=== PATIENT | female | born 2000 | race Caucasian/White ===

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

== ENCOUNTER 2021-08-19 17:55 | Inpatient (IN) | payer BC ==
[2021-08-19] MEDS ORDERED: ePHEDrine 50 MG/ML SDV IVPUSH PRN (19:20)
[2021-08-19] MEDS ORDERED: fentaNYL 100 MCG/2 ML SDV EPIDUR PRN (19:20)
[2021-08-19] MEDS ORDERED: Ondansetron 4 MG/2 ML SDV IVPUSH PRN ×2 (19:20→19:57)
[2021-08-19] MEDS ORDERED: Bupivacaine/fentaNYL/NS 100 ML Bag EPIDUR SCH (19:30)
[2021-08-19] MEDS ORDERED: Sodium Chloride 0.9% 10 ML Syringe FLUSH PRN (19:57)
[2021-08-19] MEDS ORDERED: Nalbuphine 10 MG/1 ML Vial IVPUSH PRN (19:57)
[2021-08-19] MEDS ORDERED: Lactated Ringers 1,000 ML IV SCH (20:00)
[2021-08-19] MEDS ORDERED: Oxytocin/Lactated Ringers 10 UNIT/1,000 ML BAG IV SCH (20:00)
--- NOTE | 2021-08-19 20:01 | PCM.LDHP ---
L&D History of Present Illness - General Date of Service: 08/19/21 Admit Problem/Dx: Patient Status Order with Admit Dx/Problem 08/19/21 19:57 Patient Status [ADT] Routine Admission Diagnosis/Problem Admission Diagnosis/Problem Normal labor Source of Information: Patient History Limitations: Reports: No Limitations - History of Present Illness Introduction:: Patient is a 21 y/o at 39 5/7 wks who presents for concerns of labor . Has been allen on and off for about 24 hours. Worsened this PM. No LOF - Related Data Allergies/Adverse Reactions: Allergies Allergy/AdvReac Type Severity Reaction Status Date / Time amoxicillin [From Augmentin] Allergy Rash Verified 08/16/21 15:16 clavulanic acid Allergy Rash Verified 08/16/21 15:16 [From Augmentin] dextromethorphan Allergy Rash Verified 08/16/21 15:16 [From NyQuil] doxylamine [From NyQuil] Allergy Rash Verified 08/16/21 15:16 pseudoephedrine [From NyQuil] Allergy Rash Verified 08/16/21 15:16 Home Medications: Home Meds Acyclovir 400 mg PO TID 08/16/21 [History] Calcium Carbonate [Calcium] 600 mg PO DAILY 08/16/21 [History] [place]-3 Fatty Acids [Maxepa] 500 mg PO DAILY 08/16/21 [History] Pnv No.95/Ferrous Fum/Folic AC [ Tablet] 1 each PO DAILY 08/16/21 [History] Past Medical History - Past Health History Medical/Surgical History: Denies Medical/Surgical History IMPORT/[employer] History: Reports: : 1 Para: 0 LMP (Approximate): Social & Family History - Tobacco Use Tobacco Use Status *Q: Never Tobacco User - Caffeine Use Caffeine Use: Reports: Coffee, Tea - Alcohol Use Alcohol Use History: No - Recreational Drug Use Recreational Drug Use: No H&P Review of Systems - Review of Systems: Review Of Systems: See Below General: Reports: No Symptoms Pulmonary: Reports: No Symptoms Cardiovascular: Reports: No Symptoms Gastrointestinal: Reports: Abdominal Pain Genitourinary: Reports: No Symptoms Musculoskeletal: Reports: No Symptoms Psychiatric: Reports: No Symptoms Neurological: Reports: No Symptoms L&D Exam - Exam Exam: See Below - Vital Signs Weight: 66.27 kg - OB Specific Contraction Intensity: Mild to Moderate Movement: Active Heart Tones: Present Heart Tones per Min: 125 Heart Rate (FHR) Variability: Moderate (6-25 bpm) Presentation: Vertex - Queen Score Queen Score Cervix Position: Midposition Queen Score Consistency: Soft Queen Score Effacement: >80% Queen Score Dilation: 3-4 cm Queen Score Infant's Station: -1 ,0 Queen Score Total: 10 - Exam General: Alert, Oriented, Cooperative Lungs: Clear to Auscultation, Normal Respiratory Effort Cardiovascular: Regular Rate, Regular Rhythm GI/Abdominal Exam: Soft, Non-Tender Genitourinary: Normal external exam - Patient Data Result Diagrams: 08/19/21 20:17 - Problem List (1) 39 weeks gestation of SNOMED Code(s): 72193786 ICD Code: Z3A.39 - 39 WEEKS GESTATION OF Status: Acute Current Visit: Yes (2) Rubella non-immune status, antepartum SNOMED Code(s): 672346334 ICD Code: O99.891 - OTH DISEASES AND CONDITIONS COMPLICATING ; Z28.3 - UNDERIMMUNIZATION STATUS Status: Acute Current Visit: Yes Problem List Initiated/Reviewed/Updated: Yes Orders Last 24hrs: Active Orders 24 hr Category Date Time Status Patient Status [ADT] Routine ADT 08/19/21 19:57 Ordered Activity as Tolerated [RC] PFP Care 08/19/21 19:57 Ordered Communication Order [RC] ASDIRECTED Care 08/19/21 19:57 Ordered Heart Tones [RC] ASDIRECTED Care 08/19/21 19:58 Ordered Non Stress Test [RC] PER UNIT ROUTINE Care 08/19/21 19:57 Ordered Notify Provider [RC] ASDIRECTED Care 08/19/21 19:19 Active Notify Provider [RC] PFP Care 08/19/21 19:57 Ordered Notify Provider [RC] PRN Care 08/19/21 19:57 Ordered Oxygen Therapy [RC] ASDIRECTED Care 08/19/21 19:19 Active Peripheral IV Care [RC] . DIRECTED Care 08/19/21 19:58 Ordered Pulse Oximetry [RC] ASDIRECTED Care 08/19/21 19:19 Active Vital Signs [RC] PER UNIT ROUTINE Care 08/19/21 19:57 Ordered CBC W/O DIFF,HEMOGRAM [HEME] Routine Lab 08/19/21 19:57 Ordered CORONAVIRUS COVID-19 RAJEEV [MOLEC] Stat Lab 08/19/21 19:59 Ordered RAPID PLASMA REAGIN,RPR [CHEM] Routine Lab 08/19/21 19:57 Ordered TYPE AND SCREEN [BBK] Routine Lab 08/19/21 19:57 Ordered Bupivacaine/fentaNYL/NS [fentaNYL/Bupivacaine/NS 2 MCG- Med 08/19/21 19:30 Active 0.125% 100 ML] 100 ml EPIDUR ASDIRECTED Lactated Ringers [Ringers, Lactated] 1,000 ml Med 08/19/21 20:00 Ordered IV ASDIRECTED Nalbuphine [Nubain] Med 08/19/21 19:57 Ordered 10 mg IVPUSH Q2H PRN Ondansetron [Zofran] Med 08/19/21 19:20 Active 4 mg IVPUSH ONETIME PRN Ondansetron [Zofran] Med 08/19/21 19:57 Ordered 4 mg IVPUSH Q4H PRN Oxytocin/Lactated Ringers [Pitocin in LR 10 Units/1,000 Med 08/19/21 20:00 Ordered ML] 10 unit in 1,000 ml IV .CONTINUOUS Phenylephrine HCl In 0.9% NaCl [Phenylephrine 1 MG/10 Med 08/19/21 19:20 Pending ML-NS] 0.1 mg IVPUSH Q10M PRN Sodium Chloride 0.9% [Saline Flush] Med 08/19/21 19:57 Ordered 10 ml FLUSH ASDIRECTED PRN ePHEDrine [ePHEDrine sulfate] Med 08/19/21 19:20 Pending 5 mg IVPUSH ASDIRECTED PRN fentaNYL [Sublimaze] Med 08/19/21 19:20 Active 100 mcg EPIDUR Q3H PRN Electronic Heart Tones Ext w TOCO [WOMSER] Oth 08/19/21 19:57 Ordered Routine Electronic Heart Tones Internal [WOMSER] Per Unit Oth 08/19/21 19:57 Ordered Routine Peripheral IV Insertion Adult [OM.PC] Routine Oth 08/19/21 19:57 Ordered Resuscitation Status Routine Resus Stat 08/19/21 19:57 Ordered Medication Orders Ephedrine Sulfate (Ephedrine 50 Mg/Ml Sdv) 5 mg IVPUSH ASDIRECTED PRN PRN Reason: Hypotension Fentanyl (Fentanyl 100 Mcg/2 Ml Sdv) 100 mcg EPIDUR Q3H PRN PRN Reason: Pain Fentanyl/Bupivacaine HCl (Bupivacaine/Fentanyl/Ns 100 Ml Bag) 100 ml EPIDUR DIRECTED SHYANNE Miscellaneous Medication (Phenylephrine Hcl In 0.9% Nacl 1 Mg/10 Ml Syringe) 0.1 mg IVPUSH Q10M PRN PRN Reason: Hypotension Ondansetron HCl (Ondansetron 4 Mg/2 Ml Sdv) 4 mg IVPUSH ONETIME PRN PRN Reason: Nausea/Vomiting Assessment/Plan Comment:: * Labs done * GBS negative * AROM completed * Pain management per patient preference * Anticipate
[2021-08-19] MEDS ORDERED: Lidocaine 1% 50 ML MDV ONE (22:51)
--- NOTE | 2021-08-19 23:31 | PCM.DEL ---
L & D Note - General Info Date of Service: 08/19/21 - Delivery Note Labor: Spontaneous Delivery Outcome: Livebirth Delivery Method: Spontaneous Vaginal Delivery-Single Delivery Mode: Spontaneous Presentation: Left Occiput Anterior (MARK) Nuchal Cord: None Anesthesia Type: None Episiotomy Type: None Laceration: 1st Degree Placenta: Intact, Spontaneous Cord: 3 Vessels Estimated Blood Loss: 100 Resuscitation Needed: Yes : Bulb Syringe, Stimulated, Warmed, [place] Used Delivery Comments (Free Text/Narrative):: Patient found to be complete and began pushing. With maternal pushing effort head delivered from MRAK presentation. No nuchal cord present. With gentle downward traction shoulders and body delivered. Infant placed on maternal abdomen. Cord clamped and cut. Cord blood obtained. placenta allowed time to separate and expelled intact. Inspection of perineum showed a small 1st degree laceration which was hemostatic and so not repaired - General Info Date of Service: 08/19/21 - Patient Data Vitals - Most Recent: Last Vital Signs Temp 37.1 C 08/19/21 19:57 Pulse 71 08/19/21 19:57 Resp 14 08/19/21 19:57 BP 114/76 08/19/21 19:57 Pulse Ox 98 08/19/21 19:57 Weight - Most Recent: 66.224 kg - Problem List & Annotations (1) 39 weeks gestation of SNOMED Code(s): 33733699 Code(s): Z3A.39 - 39 WEEKS GESTATION OF Status: Acute Current Visit: Yes (2) Rubella non-immune status, antepartum SNOMED Code(s): 908456336 Code(s): O99.891 - OTH DISEASES AND CONDITIONS COMPLICATING ; Z28.3 - UNDERIMMUNIZATION STATUS Status: Acute Current Visit: Yes (3) Vaginal delivery SNOMED Code(s): 524738678 Code(s): O80 - ENCOUNTER FOR FULL-TERM UNCOMPLICATED DELIVERY Status: Acute Current Visit: Yes - Problem List Review Problem List Initiated/Reviewed/Updated: Yes - My Orders Last 24 Hours: My Active Orders 08/19/21 19:57 Patient Status [ADT] Routine Activity as Tolerated [RC] PFP Communication Order [RC] ASDIRECTED Non Stress Test [RC] PER UNIT ROUTINE Notify Provider [RC] PFP Notify Provider [RC] PRN Vital Signs [RC] PER UNIT ROUTINE Nalbuphine [Nubain] 10 mg IVPUSH Q2H PRN Ondansetron [Zofran] 4 mg IVPUSH Q4H PRN Sodium Chloride 0.9% [Saline Flush] 10 ml FLUSH ASDIRECTED PRN Electronic Heart Tones Ext w TOCO [WOMSER] Routine Electronic Heart Tones Internal [WOMSER] Per Unit Routine Peripheral IV Insertion Adult [OM.PC] Routine Resuscitation Status Routine 08/19/21 19:58 Heart Tones [RC] ASDIRECTED Peripheral IV Care [RC] . DIRECTED 08/19/21 20:00 Lactated Ringers [Ringers, Lactated] 1,000 ml IV ASDIRECTED Oxytocin/Lactated Ringers [Pitocin in LR 10 Units/1,000 ML] 10 unit in 1,000 ml IV .CONTINUOUS 08/19/21 20:17 RAPID PLASMA REAGIN,RPR [CHEM] Routine 08/19/21 21:09 PATIENT RETYPE [BBK] Routine - Assessment Assessment:: PPD#0 - Plan Plan:: * Routine cares * Breast feeding * Discharge home in 1-2 days
[2021-08-19] MEDS ORDERED: Docusate Sodium 100 MG Cap PO PRN (23:56)
[2021-08-19] MEDS ORDERED: Benzocaine/Menthol 20%-0.5% Spray 78 GM Cannister TOP PRN (23:56)
[2021-08-19] MEDS ORDERED: Witch Hazel Medicated Pads 40/Jar TOP PRN (23:56)
[2021-08-19] MEDS ORDERED: Acetaminophen 325 MG Tab PO PRN (23:56)
[2021-08-20] MEDS: Ibuprofen 600 MG Tab PO PRN ×2 (07:15→17:10)
--- NOTE | 2021-08-20 07:18 | PCM.PNPP ---
- General Info Date of Service: 08/20/21 Functional Status: Reports: Pain Controlled, Tolerating Diet, Ambulating, Urinating - Review of Systems General: Reports: No Symptoms Pulmonary: Reports: No Symptoms Cardiovascular: Reports: No Symptoms Gastrointestinal: Reports: No Symptoms Genitourinary: Reports: No Symptoms Musculoskeletal: Reports: No Symptoms Neurological: Reports: No Symptoms - Patient Data Vital Signs - Most Recent: Last Vital Signs Temp 36.6 C 08/20/21 04:31 Pulse 58 L 08/20/21 04:31 Resp 14 08/20/21 04:31 BP 109/64 08/20/21 04:31 Pulse Ox 96 08/20/21 04:31 Weight - Most Recent: 66.224 kg I&O - Last 24 Hours: Intake & Output 08/19/21 08/20/21 08/20/21 22:59 06:59 14:59 Intake Total 1600 Output Total 350 Balance 1250 Lab Results - Last 24 Hours: Laboratory Results - last 24 hr 08/19/21 08/19/21 08/19/21 Range/Units 20:15 20:17 20:17 WBC 11.07 H (3.98-10.04) K/mm3 RBC 4.21 (3.98-5.22) M/mm3 Hgb 12.5 (11.2-15.7) gm/dl Hct 37.8 (34.1-44.9) % MCV 89.8 D (79.4-94.8) fl MCH 29.7 (25.6-32.2) pg MCHC 33.1 (32.2-35.5) g/dl RDW Std Deviation 42.4 (36.4-46.3) fL Plt Count 193 D (182-369) K/mm3 MPV 10.4 (9.4-12.3) fl SARS-CoV-2 RNA (RAJEEV) Negative (NEGATIVE) Blood Type O POSITIVE Gel Antibody Screen Negative Med Orders - Current: Current Medications Acetaminophen (Acetaminophen 325 Mg Tab) 650 mg PO Q4H PRN PRN Reason: mild pain or fever Benzocaine/Menthol (Benzocaine/Menthol 20%-0.5% [place] 78 Gm Cannister) 0 gm TOP ASDIRECTED PRN PRN Reason: Perineal Comfort Measure Last Admin: 08/20/21 00:45 Dose: 1 canister Documented by: Docusate Sodium (Docusate Sodium 100 Mg Cap) 100 mg PO BID PRN PRN Reason: Constipation Ibuprofen (Ibuprofen 600 Mg Tab) 600 mg PO Q6H PRN PRN Reason: Mild pain or fever Last Admin: 08/20/21 07:15 Dose: 600 mg Documented by: Sony Burgos (Sony Burgos Medicated Pads 40/Jar) 1 pad TOP ASDIRECTED PRN PRN Reason: Perineal Comfort Measure Last Admin: 08/20/21 00:46 Dose: 1 tub Documented by: Discontinued Medications Ephedrine Sulfate (Ephedrine 50 Mg/Ml Sdv) 5 mg IVPUSH ASDIRECTED PRN PRN Reason: Hypotension Fentanyl (Fentanyl 100 Mcg/2 Ml Sdv) 100 mcg EPIDUR Q3H PRN PRN Reason: Pain Fentanyl/Bupivacaine HCl (Bupivacaine/Fentanyl/Ns 100 Ml Bag) 100 ml EPIDUR ASDIRECTED SHYANNE Lactated Ringer's (Ringers, Lactated) 1,000 mls @ 100 mls/hr IV ASDIRECTED SHYANNE Last Admin: 08/19/21 20:44 Dose: 100 mls/hr Documented by: Oxytocin/Lactated Ringer's (Pitocin In Lr 10 Units/1,000 Ml) 10 unit in 1,000 mls @ 500 mls/hr IV .CONTINUOUS SHYANNE Last Admin: 08/20/21 00:47 Dose: 500 mls/hr Documented by: Lidocaine HCl (Lidocaine 1% 50 Ml Mdv) Confirm Administered Dose 0 ml .ROUTE .STK-MED ONE Stop: 08/19/21 22:52 Last Admin: 08/20/21 06:52 Dose: Not Given Documented by: Miscellaneous Medication (Phenylephrine Hcl In 0.9% Nacl 1 Mg/10 Ml Syringe) 0 .1 mg IVPUSH Q10M PRN PRN Reason: Hypotension Nalbuphine HCl (Nalbuphine 10 Mg/1 Ml Vial) 10 mg IVPUSH Q2H PRN PRN Reason: Pain Last Admin: 08/19/21 20:45 Dose: 10 mg Documented by: Ondansetron HCl (Ondansetron 4 Mg/2 Ml Sdv) 4 mg IVPUSH ONETIME PRN PRN Reason: Nausea/Vomiting Ondansetron HCl (Ondansetron 4 Mg/2 Ml Sdv) 4 mg IVPUSH Q4H PRN PRN Reason: Nausea/Vomiting Sodium Chloride (Sodium Chloride 0.9% 10 Ml Syringe) 10 ml FLUSH ASDIRECTED PRN PRN Reason: Keep Vein Open - Interaction Infant Disposition, : [place] in Room with Family Interaction: Holding Infant Infant Feeding: Attempted ; Nursed Fair/Poor Support Person: - Recovery Exam Fundal Tone: Firm Fundal Level: 2 Fingerbreadths Below Umbilicus Fundal Placement: Midline Lochia Amount: Small Lochia Color: Rubra/Red Perineum Description: Other (see below) Other Perinuem Description: 1st degree not repaired Episiotomy/Laceration: None Bladder Status: Voiding Urinary Elimination: Voided - Exam General: Alert, Oriented, Cooperative GI/Abdominal Exam: Soft, Non-Tender - Problem List & Annotations (1) 39 weeks gestation of SNOMED Code(s): 49248169 Code(s): Z3A.39 - 39 WEEKS GESTATION OF Status: Acute Current Visit: Yes (2) Rubella non-immune status, antepartum SNOMED Code(s): 070780815 Code(s): O99.891 - OTH DISEASES AND CONDITIONS COMPLICATING ; Z28.3 - UNDERIMMUNIZATION STATUS Status: Acute Current Visit: Yes (3) Vaginal delivery SNOMED Code(s): 301585813 Code(s): O80 - ENCOUNTER FOR FULL-TERM UNCOMPLICATED DELIVERY Status: Acute Current Visit: Yes - Problem List Review Problem List Initiated/Reviewed/Updated: Yes - My Orders Last 24 Hours: My Active Orders 08/19/21 Breakfast Regular Diet [DIET] 08/19/21 19:57 Resuscitation Status Routine 08/19/21 20:17 RAPID PLASMA REAGIN,RPR [CHEM] Routine 08/19/21 21:09 PATIENT RETYPE [BBK] Routine 08/19/21 23:56 Acetaminophen [TylenoL] 650 mg PO Q4H PRN Benzocaine/Menthol [Dermoplast Pain Relief 20%-0.5% [place]] See Dose Instructions TOP ASDIRECTED PRN Docusate Sodium [Colace] 100 mg PO BID PRN Ibuprofen [Motrin] 600 mg PO Q6H PRN witch Delilah [Tucks] 1 pad TOP ASDIRECTED PRN Heat Therapy [OM.PC] PRN 08/19/21 23:56 Activity as Tolerated [RC] PER UNIT ROUTINE Vital Signs [RC] 03,,, Assess Lochia [WOMSER] Per Unit Routine Assess Uterine Involution [WOMSER] Per Unit Routine Breast Pump [WOMSER] Per Unit Routine Ice Therapy [OM.PC] Per Unit Routine Perineal Care [OM.PC] Per Unit Routine Peripheral IV Discontinue [OM.PC] Routine Sitz Bath [OM.PC] Per Unit Routine 08/20/21 23:56 Heat Therapy [OM.PC] PRN - Assessment Assessment:: PPD#1 - Plan Plan:: * Routine cares * Breast feeding * Discharge home tomorrow
[2021-08-20] MEDS ORDERED: Measles, Mumps & Rubella Vaccine 0.5 ML SDV SUBCUT ONE (20:50)
[2021-08-21] MEDS: Ibuprofen 600 MG Tab PO PRN (02:13)
--- NOTE | 2021-08-21 07:07 | PCM.PNPP ---
- General Info Date of Service: 08/21/21 Functional Status: Reports: Pain Controlled, Tolerating Diet, Ambulating, Urinating - Review of Systems General: Reports: No Symptoms Pulmonary: Reports: No Symptoms Cardiovascular: Reports: No Symptoms Gastrointestinal: Reports: No Symptoms Genitourinary: Reports: No Symptoms Musculoskeletal: Reports: No Symptoms Neurological: Reports: No Symptoms - General Info Date of Service: 08/21/21 - Patient Data Vital Signs - Most Recent: Last Vital Signs Temp 37.3 C 08/21/21 02:10 Pulse 57 L 08/21/21 02:10 Resp 12 08/21/21 02:10 BP 104/67 08/21/21 02:10 Pulse Ox 97 08/21/21 02:10 Weight - Most Recent: 66.224 kg I&O - Last 24 Hours: Intake & Output 08/20/21 08/21/21 08/21/21 22:59 06:59 14:59 Intake Total 220 Balance 220 Lab Results - Last 24 Hours: Laboratory Results - last 24 hr 08/19/21 Range/Units 20:17 RPR Non-reactive (NONREACTIVE) Med Orders - Current: Current Medications Acetaminophen (Acetaminophen 325 Mg Tab) 650 mg PO Q4H PRN PRN Reason: mild pain or fever Benzocaine/Menthol (Benzocaine/Menthol 20%-0.5% [place] 78 Gm Cannister) 0 gm TOP ASDIRECTED PRN PRN Reason: Perineal Comfort Measure Last Admin: 08/20/21 00:45 Dose: 1 canister Documented by: Docusate Sodium (Docusate Sodium 100 Mg Cap) 100 mg PO BID PRN PRN Reason: Constipation Ibuprofen (Ibuprofen 600 Mg Tab) 600 mg PO Q6H PRN PRN Reason: Mild pain or fever Last Admin: 08/21/21 02:13 Dose: 600 mg Documented by: Sony Burgos (Sony Burgos Medicated Pads 40/Jar) 1 pad TOP ASDIRECTED PRN PRN Reason: Perineal Comfort Measure Last Admin: 08/20/21 00:46 Dose: 1 tub Documented by: Discontinued Medications Ephedrine Sulfate (Ephedrine 50 Mg/Ml Sdv) 5 mg IVPUSH ASDIRECTED PRN PRN Reason: Hypotension Fentanyl (Fentanyl 100 Mcg/2 Ml Sdv) 100 mcg EPIDUR Q3H PRN PRN Reason: Pain Fentanyl/Bupivacaine HCl (Bupivacaine/Fentanyl/Ns 100 Ml Bag) 100 ml EPIDUR ASDIRECTED SHYANNE Lactated Ringer's (Ringers, Lactated) 1,000 mls @ 100 mls/hr IV ASDIRECTED SHYANNE Last Admin: 08/19/21 20:44 Dose: 100 mls/hr Documented by: Oxytocin/Lactated Ringer's (Pitocin In Lr 10 Units/1,000 Ml) 10 unit in 1,000 mls @ 500 mls/hr IV .CONTINUOUS SHYANNE Last Admin: 08/20/21 00:47 Dose: 500 mls/hr Documented by: Lidocaine HCl (Lidocaine 1% 50 Ml Mdv) Confirm Administered Dose 0 ml .ROUTE .[facility]-MED ONE Stop: 08/19/21 22:52 Last Admin: 08/20/21 06:52 Dose: Not Given Documented by: Measles/Mumps/Rubella Vaccine Live (Measles, Mumps & Rubella Vaccine 0.5 Ml Sdv) 0.5 ml SUBCUT .ONCE ONE Stop: 08/20/21 20:51 Miscellaneous Medication (Phenylephrine Hcl In 0.9% Nacl 1 Mg/10 Ml Syringe) 0.1 mg IVPUSH Q10M PRN PRN Reason: Hypotension Nalbuphine HCl (Nalbuphine 10 Mg/1 Ml Vial) 10 mg IVPUSH Q2H PRN PRN Reason: Pain Last Admin: 08/19/21 20:45 Dose: 10 mg Documented by: Ondansetron HCl (Ondansetron 4 Mg/2 Ml Sdv) 4 mg IVPUSH ONETIME PRN PRN Reason: Nausea/Vomiting Ondansetron HCl (Ondansetron 4 Mg/2 Ml Sdv) 4 mg IVPUSH Q4H PRN PRN Reason: Nausea/Vomiting Sodium Chloride (Sodium Chloride 0.9% 10 Ml Syringe) 10 ml FLUSH ASDIRECTED PRN PRN Reason: Keep Vein Open - Infant Interaction Disposition, : in Room with Family Interaction: Holding Feeding: Breastfed Infant; Nursed Well Support Person: - Recovery Exam Fundal Tone: Firm Fundal Level: 1 Fingerbreadths Below Umbilicus Fundal Placement: Right Lochia Amount: Small Lochia Color: Rubra/Red Perineum Description: Other (see below) Other Perinuem Description: First degree laceration with no repair Episiotomy/Laceration: Approximated Bladder Status: Voiding Urinary Elimination: Voided - Exam General: Alert, Oriented, Cooperative GI/Abdominal Exam: Soft, Non-Tender - Problem List & Annotations (1) 39 weeks gestation of SNOMED Code(s): 62977798 Code(s): Z3A.39 - 39 WEEKS GESTATION OF Status: Acute Current Visit: Yes (2) Rubella non-immune status, antepartum SNOMED Code(s): 067408674 Code(s): O99.891 - OTH DISEASES AND CONDITIONS COMPLICATING ; Z28.3 - UNDERIMMUNIZATION STATUS Status: Acute Current Visit: Yes (3) Vaginal delivery SNOMED Code(s): 790066991 Code(s): O80 - ENCOUNTER FOR FULL-TERM UNCOMPLICATED DELIVERY Status: Acute Current Visit: Yes - Problem List Review Problem List Initiated/Reviewed/Updated: Yes - My Orders Last 24 Hours: My Active Orders 08/20/21 23:56 Heat Therapy [OM.PC] PRN 08/21/21 07:06 Ready for Discharge [RC] PER UNIT ROUTINE - Assessment Assessment:: PPD#2 - Plan Plan:: * Routine cares * Breast feeding * Discharge home today
--- NOTE | 2021-08-21 07:08 | PCM.DCSUM1 ---
Discharge Summary - Discharge Data Discharge Date: 08/21/21 Discharge Disposition: Home, Self-Care 01 Condition: Good - Referral to Home Health Primary Care Physician: Luz Jacobsen MD - Discharge Diagnosis/Problem(s) (1) 39 weeks gestation of SNOMED Code(s): 32530954 ICD Code: Z3A.39 - 39 WEEKS GESTATION OF Status: Acute Current Visit: Yes (2) Rubella non-immune status, antepartum SNOMED Code(s): 536927937 ICD Code: O99.891 - OTH DISEASES AND CONDITIONS COMPLICATING ; Z28.3 - UNDERIMMUNIZATION STATUS Status: Acute Current Visit: Yes (3) Vaginal delivery SNOMED Code(s): 003552876 ICD Code: O80 - ENCOUNTER FOR FULL-TERM UNCOMPLICATED DELIVERY Status: Acute Current Visit: Yes - Patient Summary/Data Complications: None Consults: None Recommended Follow-up Testing/Procedures: Follow up in 3 weeks for check Hospital Course: 21 y/o at 39 5/7 wks who presented in labor. Progressed well after AROM and underwent an uncomplicated . See delivery note. did well. Was discharged home on PPD#2 - Patient Instructions Diet: Regular Diet as Tolerated Activity: As Tolerated Activity, Other: Pelvic rest for 6 weeks Driving: May Drive Today Showering/Bathing: May Shower Showering/Bathing, Other: may bathe Notify Provider of: Fever, Increased Pain, Swelling and Redness, Drainage, Nausea and/or Vomiting - Discharge Plan *PRESCRIPTION DRUG MONITORING PROGRAM REVIEWED*: No *COPY OF PRESCRIPTION DRUG MONITORING REPORT IN PATIENT EBENEZER: No Home Medications: Home Meds Pnv No.95/Ferrous Fum/Folic AC [ Tablet] 1 each PO DAILY 08/16/21 [History] Docusate Sodium [Colace] 100 mg PO BID PRN cap 08/20/21 [Rx] Ibuprofen [Motrin] 600 mg PO Q6H PRN tablet 08/20/21 [Rx] Referrals: Luz Jacobsen MD [Primary Care Provider] - (3 weeks for check) - Discharge Summary/Plan Comment DC Time >30 min.: No Total # of Minutes for Discharge Time: 15 - Patient Data Vitals - Most Recent: Last Vital Signs Temp 37.3 C 08/21/21 02:10 Pulse 57 L 08/21/21 02:10 Resp 12 08/21/21 02:10 BP 104/67 08/21/21 02:10 Pulse Ox 97 08/21/21 02:10 Weight - Most Recent: 66.224 kg I&O - Last 24 hours: Intake & Output 08/20/21 08/21/21 08/21/21 22:59 06:59 14:59 Intake Total 220 Balance 220 Lab Results - Last 24 hrs: Laboratory Results - last 24 hr 08/19/21 Range/Units 20:17 RPR Non-reactive (NONREACTIVE) Med Orders - Current: Current Medications Acetaminophen (Acetaminophen 325 Mg Tab) 650 mg PO Q4H PRN PRN Reason: mild pain or fever Benzocaine/Menthol (Benzocaine/Menthol 20%-0.5% [place] 78 Gm Cannister) 0 gm TOP ASDIRECTED PRN PRN Reason: Perineal Comfort Measure Last Admin: 08/20/21 00:45 Dose: 1 canister Documented by: Docusate Sodium (Docusate Sodium 100 Mg Cap) 100 mg PO BID PRN PRN Reason: Constipation Ibuprofen (Ibuprofen 600 Mg Tab) 600 mg PO Q6H PRN PRN Reason: Mild pain or fever Last Admin: 08/21/21 02:13 Dose: 600 mg Documented by: Sony Burgos (Sony Burgos Medicated Pads 40/Jar) 1 pad TOP ASDIRECTED PRN PRN Reason: Perineal Comfort Measure Last Admin: 08/20/21 00:46 Dose: 1 tub Documented by: Discontinued Medications Ephedrine Sulfate (Ephedrine 50 Mg/Ml Sdv) 5 mg IVPUSH ASDIRECTED PRN PRN Reason: Hypotension Fentanyl (Fentanyl 100 Mcg/2 Ml Sdv) 100 mcg EPIDUR Q3H PRN PRN Reason: Pain Fentanyl/Bupivacaine HCl (Bupivacaine/Fentanyl/Ns 100 Ml Bag) 100 ml EPIDUR ASDIRECTED SHYANNE Lactated Ringer's (Ringers, Lactated) 1,000 mls @ 100 mls/hr IV ASDIRECTED SHYANNE Last Admin: 08/19/21 20:44 Dose: 100 mls/hr Documented by: Oxytocin/Lactated Ringer's (Pitocin In Lr 10 Units/1,000 Ml) 10 unit in 1,000 mls @ 500 mls/hr IV .CONTINUOUS SHYANNE Last Admin: 08/20/21 00:47 Dose: 500 mls/hr Documented by: Lidocaine HCl (Lidocaine 1% 50 Ml Mdv) Confirm Administered Dose 0 ml .ROUTE .[facility]-MED ONE Stop: 08/19/21 22:52 Last Admin: 08/20/21 06:52 Dose: Not Given Documented by: Measles/Mumps/Rubella Vaccine Live (Measles, Mumps & Rubella Vaccine 0.5 Ml Sdv) 0.5 ml SUBCUT .ONCE ONE Stop: 08/20/21 20:51 Miscellaneous Medication (Phenylephrine Hcl In 0.9% Nacl 1 Mg/10 Ml Syringe) 0.1 mg IVPUSH Q10M PRN PRN Reason: Hypotension Nalbuphine HCl (Nalbuphine 10 Mg/1 Ml Vial) 10 mg IVPUSH Q2H PRN PRN Reason: Pain Last Admin: 08/19/21 20:45 Dose: 10 mg Documented by: Ondansetron HCl (Ondansetron 4 Mg/2 Ml Sdv) 4 mg IVPUSH ONETIME PRN PRN Reason: Nausea/Vomiting Ondansetron HCl (Ondansetron 4 Mg/2 Ml Sdv) 4 mg IVPUSH Q4H PRN PRN Reason: Nausea/Vomiting Sodium Chloride (Sodium Chloride 0.9% 10 Ml Syringe) 10 ml FLUSH ASDIRECTED PRN PRN Reason: Keep Vein Open
[2021-08-21 11:52] VITALS: BP 109/75; PULSE 67
== END 2021-08-21 10:50 | disposition home or self-care (01) | DRG 560 ==
LOC: JD.OB 17:55 → JD.OBCHECK 17:55 → JD.OB 19:57 → OBSVTOIN 23:16 → JD.OB 23:17
PROVIDERS: ADMIT Obstetrics & Gynecology; ATTEND Obstetrics & Gynecology
PROC: 10907ZC Drainage of Amniotic Fluid, Therapeutic from Products of Conception, Via Natural or Artificial Opening (ICD-10-PCS; principal; 2021-08-19)
PROC: 10E0XZZ Delivery of Products of Conception, External Approach (ICD-10-PCS; principal; 2021-08-19)
DX: O70.0 First degree perineal laceration during delivery (principal); Z3A.39 39 weeks gestation of pregnancy; Z37.0 Single live birth; Z20.822 Contact with and (suspected) exposure to COVID-19
CPT/HCPCS: 36415; 59025; 59409; 85027; 86592; 86850; 86900; 86901; 90471; 90707; A9270-GY; J2300; J2590; J7120; U0002

== ENCOUNTER 2023-04-17 20:14 | Inpatient (IN) | payer BC ==
[2023-04-17] MEDS ORDERED: Ondansetron 4 MG/2 ML SDV IVPUSH PRN (22:57)
[2023-04-17] MEDS ORDERED: Sodium Chloride 0.9% 10 ML Syringe FLUSH PRN (22:57)
[2023-04-17] MEDS ORDERED: Lactated Ringers 1,000 ML IV SCH (23:00)
[2023-04-17] MEDS ORDERED: Oxytocin/Lactated Ringers 10 UNIT/1,000 ML BAG IV SCH (23:00)
[2023-04-17] MEDS ORDERED: ceFAZolin 2 GM in Sodium Chloride 0.9% 50 ML IV ONE (23:15)
[2023-04-17 23:16] LABS: BASOPHILS ABSOLUTE AUTO 0.02 K/mm3 (0.01-0.08); BASOPHILS PERCENT AUTO 0.2 % (0.1-1.2); EOSINOPHILS ABSOLUTE AUTO 0.06 K/mm3 (0.04-0.36); EOSINOPHILS PERCENT AUTO 0.7 (0.7-5.8); HEMATOCRIT 36.7 % (34.1-44.9); HEMOGLOBIN 12.6 gm/dl (11.2-15.7); IMMATURE GRAN ABSOLUTE AUTO 0.02 K/mm3 (0.00-0.10); IMMATURE GRAN PERCENT AUTO 0.2 % (<=1.0); LYMPHOCYTES ABSOLUTE AUTO 2.12 K/mm3 (1.18-3.74); LYMPHOCYTES PERCENT AUTO 24.7 % (19.3-51.7); MEAN CORPUSCULAR HEMOGLOBIN 30.4 pg (25.6-32.2); MEAN CORPUSCULAR HGB CONC 34.3 g/dl (32.2-35.5); MEAN CORPUSCULAR VOLUME 88.4 fl (79.4-94.8); MEAN PLATELET VOLUME 9.6 fl (9.4-12.3); MONOCYTES ABSOLUTE AUTO 0.72 K/mm3 (0.24-0.36); MONOCYTES PERCENT AUTO 8.4 % (4.7-12.5); NEUTROPHILS ABSOLUTE AUTO 5.66 K/mm3 (1.56-6.13); NEUTROPHILS PERCENT AUTO 65.8 % (34.0-71.1); PLATELET COUNT,PLT 171 K/mm3 (182-369); RED BLOOD CELL COUNT 4.15 M/mm3 (3.98-5.22)
[2023-04-18] MEDS: Nalbuphine 10 MG/0.5 ML Syringe IVPUSH PRN ×2 (00:49→05:08)
[2023-04-18] MEDS ORDERED: ceFAZolin 1 GM in Sodium Chloride 0.9% 100 ML IV SCH (07:00)
[2023-04-18] MEDS ORDERED: Acetaminophen 325 MG Tab PO PRN (08:10)
[2023-04-18] MEDS ORDERED: Magnesium Hydroxide 400 MG/5 ML Susp 30 ML Cup PO PRN (08:10)
[2023-04-18] MEDS ORDERED: Docusate Sodium 100 MG Cap PO PRN (08:10)
[2023-04-18] MEDS ORDERED: Hydrocortisone Acetate 25 MG Supp RECTAL PRN (08:10)
[2023-04-18] MEDS ORDERED: Witch Hazel Medicated Pads 40/Jar TOP PRN (08:10)
[2023-04-18] MEDS ORDERED: Benzocaine/Menthol 20%-0.5% Spray 78 GM Cannister TOP PRN (08:10)
[2023-04-18] MEDS ORDERED: Oxytocin/Lactated Ringers 10 UNIT/1,000 ML BAG IV SCH (08:10)
[2023-04-18] MEDS: Ibuprofen 600 MG Tab PO PRN ×2 (09:16→18:11)
[2023-04-18 19:00] LABS: GROUP B STREP BY PCR NEGATIVE (NEGATIVE)
[2023-04-18] MEDS: Prenatal Multivitamin with Calcium/Folic Acid/Iron Tab PO SCH (21:18)
[2023-04-19] MEDS: Ibuprofen 600 MG Tab PO PRN ×3 (01:15→20:57)
[2023-04-19] MEDS: Prenatal Multivitamin with Calcium/Folic Acid/Iron Tab PO SCH (21:42)
[2023-04-20 02:46] VITALS: BP 98/59; PULSE 56
[2023-04-20] MEDS: Prenatal Multivitamin with Calcium/Folic Acid/Iron Tab PO SCH (10:07)
== END 2023-04-20 09:30 | disposition home or self-care (01) | DRG 560 ==
LOC: JD.OBCHECK 20:14 → JD.OB 22:45 → OBSVTOIN 04-18 07:23 → JD.OB 04-18 07:24
PROVIDERS: ADMIT Obstetrics & Gynecology; ATTEND Obstetrics & Gynecology
PROC: 10E0XZZ Delivery of Products of Conception, External Approach (ICD-10-PCS; principal; 2023-04-18)
PROC: 3E033VJ Introduction of Other Hormone into Peripheral Vein, Percutaneous Approach (ICD-10-PCS; 2023-04-18)
DX: O60.14X0 Preterm labor third trimester with preterm delivery third trimester, not applicable or unspecified (principal); O43.193 Other malformation of placenta, third trimester; Z37.0 Single live birth; Z3A.36 36 weeks gestation of pregnancy; Z79.899 Other long term (current) drug therapy; Z88.1 Allergy status to other antibiotic agents; Z88.8 Allergy status to other drugs, medicaments and biological substances; Z86.16 Personal history of COVID-19
CPT/HCPCS: 36415; 59025; 59409; 85025; 86592; 87653; A9270-GY; J0690; J2300; J3490; J7120